=== PATIENT | male | born 1965 | race Caucasian/White ===

== ENCOUNTER → 2017-12-15 | Outpatient (CLI) | payer OTHER ==
--- NOTE | 2017-12-15 23:31 | MR ---
EXAMINATION TYPE: MR hip LT wo con DATE OF EXAM: 12/15/2017 COMPARISON: None HISTORY: Left hip pain Standard multiplanar, multisequence MRI departmental protocol Multiplanar, multisequence images of the left hip were acquired. FINDINGS: Proximal femurs have normal signal pattern without evidence of edema. The acetabula are sym metric. There is asymmetric increased right side joint fluid compared to the left. There is a 16 x 5 cm fluid collection in the anterior upper thigh on the left side on the medial aspect. This extends t o the left inguinal region. I see no mass within the pelvis. There is no free fluid in the pelvis. Th ere is no sign of avascular necrosis. IMPRESSION: Large cystic fluid collection in the anterior thigh extending to the left inguinal region. This could be an unusual inguinal hernia containing intraperitoneal fluid. This appears remote from the left hi p joint and I do not think this is a synovial cyst. there appears to be a channel extending to the inguinal ligament. No evidence of hip dysplasia or avascular necrosis.
--- NOTE | 2017-12-15 23:35 | MR ---
EXAMINATION TYPE: MR femur/thigh LT wo con DATE OF EXAM: 12/15/2017 COMPARISON: None HISTORY: Pain and redness and swelling Standard multiplanar, multisequence MRI departmental protocol Multiplanar, multisequence images of the left femur were acquired. FINDINGS: The exam extends from the subtrochanteric femurs to the knee joints. The femurs have normal signal pattern without evidence of a bony destructive process. There is elongated large cystic fluid collection in the anterior left upper thigh on the medial aspect. This measures 17 x 5 cm. The upper extent is seen on the MR scan of the hip joint. This extends to the inguinal ligament. I see no no e vidence of a mass within the thigh muscles. There is normal flow signal seen in the femoral veins and arteries. IMPRESSION: Large nonspecific cystic mass in the medial anterior upper thigh. I would consider possibilities of c hronic hematoma, seroma, less likely abscess.
== END | disposition home or self-care (01) ==
LOC: RADMRIMAIN 17:15
PROVIDERS: ATTEND Surgery
DX: C49.22 Malignant neoplasm of connective and soft tissue of left lower limb, including hip (principal)

== ENCOUNTER → 2018-02-04 | Outpatient (CLI) | payer OTHER ==
--- NOTE | 2018-02-05 16:59 | PE ---
EXAMINATION TYPE: PET CT fusion skull to thigh DATE OF EXAM: 02/04/2018 COMPARISON: MRI left thigh 12/15/2017 Prior PET/CT: None HISTORY: Sarcoma left thigh TECHNIQUE: Following the intravenous administration of 13.628 mCi of F-18 FDG, whole body images are performed from the skull base to the midthigh. Images are reviewed on the computer in the coronal, axial, and sagittal planes. Reconstructed rotating images are created on independent workstation and reviewed on the computer. A localization and attenuation correction CT is performed in conjunction with the PET scan. DLP: 455.66 mGycm SCAN: Initial Blood glucose: 94 mg/dL Average Mediastinum SUV: 1.2 Average Liver SUV: 1.70 FINDINGS: NECK: There is increased radiotracer accumulation within the tonsillar pillars. On the left this has an SUV value of 4.8 and on the right this has an SUV value of 3.29. PET image 32. Direct visualizati on is recommended. THORAX: No abnormal uptake ABDOMEN: No abnormal uptake PELVIS: No abnormal uptake. Upper thighs: The left anterior medial thigh mass has a similar density to musculature. Uptake is mil d diffuse. Greatest uptake appears to be approximately 2.32 in the upper portion. PET image 241. Sabino tional uptake is in the range of 1.95 - 2.06. Obvious metastatic lesions are not identified. OSSEOUS STRUCTURES: No abnormal uptake LOCALIZATION CT: Tonsillar pillars do not appear significantly abnormal some mild fullness. Suspiciou s adenopathy is not identified. Mediastinum appears unremarkable. The ascending thoracic aorta at the level of main pulmonary artery is 3.7 cm previously. The bifurcation is 2.6 cm. Mass within the ante rior medial thigh appears to be completely visualized and is estimated to measure 7.8 x 4.4 cm. COMPARISON: No significant change from the MRI is evident. IMPRESSION: 1. Intermediate signal through the mass at the anterior medial left thigh. Given the significant hype rmetabolic activity of this lesion, metastatic lesions may be difficult or occult on evaluation of th is PET/CT. 2. No suspicious uptake identified elsewhere to suggest metastatic disease. 3. There is some increased uptake within the bilateral tonsillar pillars. Direct visualization is war ranted.
== END | disposition home or self-care (01) ==
LOC: RADPETMAIN 15:29
PROVIDERS: ATTEND Radiology Radiation Oncology
DX: C49.22 Malignant neoplasm of connective and soft tissue of left lower limb, including hip (principal)
CPT/HCPCS: 78815; A9552

== ENCOUNTER → 2018-04-28 | Outpatient (CLI) | payer OTHER ==
--- NOTE | 2018-04-30 10:20 | MR ---
EXAMINATION TYPE: MR hip LT wo/w con DATE OF EXAM: 04/28/2018 COMPARISON: 12/15/2017 HISTORY: Sacroma CONTRAST: Standard multiplanar, multisequence MRI departmental protocol utilizing 9 mL intravenous Gadavist hardy olinium contrast. The plantar MultiSpin echo imaging of the left hip was performed with pre and post contrast enhanced images obtained. FINDINGS: Large predominantly cystic mass noted medial left thigh anteriorly persists although is much smaller in size on the current study. Prior measurement is 16 x 5 cm with current measurement of 6.0 x 4.0 x 3.1 cm. Mass currently demonstrates cystic and solid component. No new masses are identified. There a ppears to be an adjacent enlarged lymph node measuring 1.7 cm. Additional lymph nodes are noted withi n the bilateral inguinal regions all measuring less than 1 cm short axis. No intrapelvic adenopathy i s appreciated. No pelvic masses identified. Left hip joint space is well-preserved. No evidence for labral tear. No evidence for avascular necros is or fracture. IMPRESSION: 1. Partially cystic partially solid mass medial left thigh anteriorly persists although is much small er in size. 2. Adjacent adenopathy as discussed.
== END | disposition home or self-care (01) ==
LOC: RADMRIMAIN 14:39
PROVIDERS: ATTEND Orthopaedic Surgery
DX: R59.0 Localized enlarged lymph nodes (principal); C49.9 Malignant neoplasm of connective and soft tissue, unspecified
CPT/HCPCS: 73723; A9585

== ENCOUNTER → 2018-06-03 | Outpatient (CLI) | payer OTHER ==
--- NOTE | 2018-06-03 09:23 | MR ---
EXAMINATION TYPE: MR cspine/lspine wo con DATE OF EXAM ORDERED: 06/03/2018 9:03 AM HISTORY: M54.10 Radiculopathy, site unspecified. TECHNOLOGIST HISTORY AT TIME OF EXAM: Radiculopathy, site unspecified, back and neck pain COMPARISON: Previous study dated 12/18/2015 and 08/26/2015. TECHNIQUE: Multiplanar, multiecho imaging of the cervical spine was obtained without contrast on a 1 .5 ruiz magnet. FINDINGS: CERVICAL SPINE: Prevertebral soft tissues are normal. There is mild loss of vertebral body height at C6. This has progressed from previous. Alignment remai ns normal. Cord signal is normal. There is a normal craniocervical junction. At C2-C3, there is mild left-sided intervertebral foraminal narrowing. There is no significant compre ssive discopathy. The facets and uncovertebral joints are unremarkable. At C3-C4, there is bilateral intervertebral foraminal narrowing. There is no significant compressive discopathy. There is mild facet arthropathy bilaterally. The uncovertebral joints are unremarkable. At C4-C5, there is bilateral intervertebral foraminal narrowing. There is a broad-based disc displace ment. There is facet hypertrophy. The uncovertebral joints are unremarkable. At C5-C6, there is mild disc space loss. There is bilateral intervertebral foraminal narrowing. There is a broad-based disc displacement. This is contacting the cord on the left. This is not compressing the cord. There is facet arthropathy. The uncovertebral joints are unremarkable. At C6-C7, there is mild vertebral body height loss at C6. There is disc space narrowing at C6-7. Inte rvertebral foramina appear well maintained. There is a right paracentral disc protrusion without defi nite cord contact. The facet and uncovertebral joints are unremarkable. At C7-T1, no definite abnormality is seen. LUMBAR SPINE: Prevertebral soft tissues are normal. Vertebral body height and alignment are maintained. Cord signal is maintained. The conus ends normall y at the level of the L1-2 disc. At T12-L1, intervertebral foramina are well maintained. There is no significant compressive discopath y. The facets are unremarkable. At L1-2, the intervertebral foramina are well maintained. There is no significant compressive discopa thy. There is capsulitis within the facets. At L2-3, there is disc space loss and disc desiccation. The intervertebral foramina are well maintain ed. There is a bilobed disc displacement. There is hypertrophic change and capsulitis within the face ts. At L3-4, the intervertebral foramina appear well maintained. There is a left lateral disc protrusion impinging upon the left exiting L3 nerve root and mildly deforming the thecal sac. There is hypertrop hic change and capsulitis within the facets. At L4-5, intervertebral foramina are well maintained. There is no significant compressive discopathy. There is hypertrophic change in the facets. At L5-S1, there is severe disc space loss. The intervertebral foramina appear reasonably well-maintai josh. There is hypertrophic change and capsulitis within the facets. IMPRESSION: 1. PROGRESSIVE VERTEBRAL BODY HEIGHT LOSS AT C6. 2. MULTILEVEL INTERVERTEBRAL FORAMINAL NARROWING. 3. DIFFUSE FACET ARTHROPATHY IN THE CERVICAL SPINE. 4. LEFT PARACENTRAL DISC DISPLACEMENT, C5-6, CONTACTING THE CERVICAL CORD WITHOUT COMPRESSION. 5. SEVERE DEGENERATIVE DISC DISEASE, L5-S1, UNCHANGED FROM PREVIOUS. 6. LEFT PARACENTRAL DISC PROTRUSION, L3-4, IMPINGING UPON THE EXITING L3 NERVE ROOT ON THE LEFT. 7. DIFFUSE FACET ARTHROPATHY IN THE LUMBAR SPINE.
== END | disposition home or self-care (01) ==
LOC: RADMRIMAIN 08:07
PROVIDERS: ATTEND Orthopaedic Surgery
DX: M48.02 Spinal stenosis, cervical region (principal); M50.222 Other cervical disc displacement at C5-C6 level; M51.26 Other intervertebral disc displacement, lumbar region; M51.37 Other intervertebral disc degeneration, lumbosacral region; M46.92 Unspecified inflammatory spondylopathy, cervical region; M46.96 Unspecified inflammatory spondylopathy, lumbar region
CPT/HCPCS: 72141; 72148

== ENCOUNTER → 2018-06-05 | Outpatient (CLI) | payer OTHER ==
--- NOTE | 2018-06-05 16:36 | CT ---
EXAMINATION TYPE: CT ChestAbdPelvis w con DATE OF EXAM: 06/05/2018 COMPARISON: Nuclear medicine PET/CT 02/04/2018 HISTORY: Sarcoma groin lt lower extremity CT DLP: 1935 mGycm Automated exposure control for dose reduction was used. CONTRAST: CT scan of the chest, abdomen and pelvis is performed with Oral Contrast and with IV Contrast, patien t injected with 100 mL of Isovue 300. FINDINGS: LUNGS: The lungs are stable, subcentimeter nodularity in the right lung is again noted, apical parase ptal emphysematous changes are present. There is no pleural effusion or pneumothorax seen. The tra cheobronchial tree is patent. MEDIASTINUM: There are no greater than 1 cm hilar or mediastinal lymph nodes. No pericardial effusi on is seen. AORTA: No significant abnormality is seen. OTHER: At the surgical site in the left lower extremity, there is a residual area of low-attenuation measuring approximately 3.6 x 7.6 x 1.5 cm along the anterior aspect of the abductor musculature, nella e associated surgical clips are also present within the subcutaneous fat level without adenopathy. LIVER/GB: Liver shows low attenuation compatible with steatosis. Gallbladder is unremarkable. PANCREAS: No significant abnormality is seen. SPLEEN: No significant abnormality is seen. ADRENALS: No significant abnormality is seen. KIDNEYS: No significant abnormality is seen. REPRODUCTIVE ORGANS: No gross abnormality seen. BOWEL: No significant abnormality is seen. FREE AIR: No Free Air visible. ASCITES: None seen. RETROPERITONEAL ADENOPATHY: No retroperitoneal adenopathy is seen. LYMPH NODES: No greater than 1 cm abdominal or pelvic lymph nodes are appreciated. URINARY BLADDER: No significant abnormality is seen. PELVIC ADENOPATHY: None visualized. OSSEOUS STRUCTURES: No significant abnormality is seen. IMPRESSION: Residual low-attenuation site of patient's previous mass could be related to seroma rathe r than tumor. There is some associated local postoperative change suspected.
== END | disposition home or self-care (01) ==
LOC: RADCTMAIN 13:42
PROVIDERS: ATTEND Orthopaedic Surgery
DX: C49.9 Malignant neoplasm of connective and soft tissue, unspecified (principal)
CPT/HCPCS: 71260; 74177; Q9967

== ENCOUNTER → 2018-10-30 | Outpatient (CLI) | payer OTHER ==
--- NOTE | 2018-10-31 08:08 | CT ---
EXAMINATION TYPE: CT ChestAbdPelvis w con DATE OF EXAM: 10/30/2018 COMPARISON: 06/05/2018 HISTORY: Sarcoma. Follow-up exam. CT DLP: 1050.5 mGycm. Automated Exposure Control for Dose Reduction was Utilized. CONTRAST: CT scan of the thorax, abdomen and pelvis is performed with IV Contrast, patient injected with 100ml mL of Isovue 300. FINDINGS: LUNGS: There is unchanged size and number of the predominantly right-sided pulmonary nodules measurin g up to 6 mm in the right lower lobe on series 5 image 35. The remainder of the sub-4 mm pulmonary no dules are marked on the examination with only 1 left pleural-based questionable pulmonary nodule and probable atelectasis near branching vessels on series 5 image 52. There are emphysematous changes of the lung apices again appreciated. No focal consolidation, pleural effusion or pneumothorax. Main tra cheal bronchial tree is patent. MEDIASTINUM: There are no greater than 1 cm hilar or mediastinal lymph nodes. No pericardial effusi on is seen. A solitary punctate coronary artery calcification is seen. OTHER: The previously seen area of hypoattenuation within the anterior abductor musculature of the le ft lower extremity previously seen on series 3 image 135 possibly representing a hematoma or seroma h as resolved in the interim. The adjacent surgical clips and small fluid collection at that time infer ior to the intramuscular lesion have also resolved in the interim. This previously was seen on series 3 image 142 with no residual fluid collection seen at this time. There is some linear fibrosis with surrounding surgical clips currently on series 3 image 141. Other fibrosis and surgical clips are see n more cranial on image 125 with soft tissue density similar to the prior measuring up to 7 mm in gre atest thickness likely fibrosis and granulation tissue however surveillance is recommended. This exte nds towards the left femoral vein may be partially related to surgical intervention and/or left femor al catheter placement scarring. LIVER/GB: Hepatic parenchyma is diffusely hypoattenuated in comparison to that of the spleen, most co mmonly seen in hepatic steatosis. This finding limits evaluation for hepatic masses. Subcapsular wedg e-shaped areas of hyperattenuation that are relative likely relate to focal fatty sparing. This is al so seen surrounding the gallbladder fossa. No gross evidence of hepatic mass is seen. No intrahepatic biliary ductal dilatation. No cholelithiasis. PANCREAS: No significant abnormality is seen. No pancreatic ductal dilatation. SPLEEN: No significant abnormality is seen. No enlargement. ADRENALS: No significant abnormality is seen. No new nodule or thickening. KIDNEYS: No significant abnormality is seen. Kidneys enhance and excrete symmetrically without hydron ephrosis. BOWEL: Very few colonic diverticula are seen without pericolonic fat stranding. Moderate fecal stasis . GENITAL ORGANS: No gross abnormality seen. LYMPH NODES: No greater than 1cm abdominal or pelvic lymph nodes are appreciated. OSSEOUS STRUCTURES: Mild multilevel degenerative changes of the spine are noted most severe at L5-S1 similar to the prior. No new suspicious osseous lesion. OTHER: Mild atherosclerosis is seen of the abdominal aorta and its branches. IMPRESSION: The previously suspected seroma within the left abductor musculature is confirmed to be a seroma as this has entirely resolved in the interim. More superficial tiny fluid collection has also resolved with linear fibrosis at the surgical site in the medial left thigh and left superficial ing uinal region. Continued surveillance is recommended. No new evidence of metastatic disease. Stable pr edominantly right multiple pulmonary nodules measuring up to 6 mm.
== END | disposition home or self-care (01) ==
LOC: RADCTMAIN 16:17
PROVIDERS: ATTEND Orthopaedic Surgery
DX: R91.8 Other nonspecific abnormal finding of lung field (principal); C49.9 Malignant neoplasm of connective and soft tissue, unspecified
CPT/HCPCS: 71260; 74177; Q9967

== ENCOUNTER → 2019-03-23 | Outpatient (CLI) | payer OTHER ==
--- NOTE | 2019-03-23 16:58 | CT ---
EXAMINATION TYPE: CT ChestAbdPelvis w con DATE OF EXAM: 03/23/2019 COMPARISON: 10/30/2018 HISTORY: f/u sarcoma CT DLP: 1277.5 mGycm CONTRAST: CT scan of the chest, abdomen and pelvis is performed without Oral Contrast and with IV Contrast, pat ient injected with 100 mL of Isovue 300. CT Chest: LUNGS: The lungs are clear and free of infiltrate or atelectasis. Scattered pulmonary nodules redemon strated. Largest nodule right lower lobe measures 6.1 mm versus 6.1 mm previously. Additional scatter ed pulmonary nodules are stable and all measure less than 4 mm. No new nodules or masses identified. No pleural effusion or CT evidence of interstitial lung disease. MEDIASTINUM: Thoracic aorta is of normal caliber. The heart is not enlarged. No evidence for media stinal mass or adenopathy. HILAR STRUCTURES: No evidence for mass. No hilar adenopathy is appreciated. OTHER: No significant abnormality. CONTRAST CT ABDOMEN AND PELVIS FINDINGS: LIVER/GB: Fatty liver with mild hepatomegaly. No calcified gallstones. No space occupying hepatic lesion. Biliary tree is of normal caliber. PANCREAS: No inflammation. No distinct mass. SPLEEN: No splenic enlargement. No lesion seen. ADRENALS: No nodule. No thickening. KIDNEYS/BLADDER: No hydronephrosis. No nephrolithiasis. No disctinct renal mass. BOWEL: Normal appendix. Normal bowel caliber. No inflammation. GENITAL ORGANS: No gross abnormality. LYMPH NODES: No greater than 1cm abdominal or pelvic lymph nodes are appreciated. AORTA: No significant abnormality. OSSEOUS STRUCTURES: No significant abnormality is seen. OTHER: Postoperative changes redemonstrated medial left thigh and left superficial region. No evidenc e for recurrent mass or fluid collection at this time. No evidence for adenopathy. IMPRESSION: 1. Postoperative changes redemonstrated medial left thigh and left superficial region. No evidence fo r recurrent mass or fluid collection at this time. No evidence for adenopathy. 2. Stable nonspecific pulmonary nodularity. 3. Mild hepatomegaly and fatty liver.
== END | disposition home or self-care (01) ==
LOC: RADCTMAIN 16:24
PROVIDERS: ATTEND Orthopaedic Surgery
DX: K76.0 Fatty (change of) liver, not elsewhere classified (principal); R16.0 Hepatomegaly, not elsewhere classified; R91.8 Other nonspecific abnormal finding of lung field; C49.22 Malignant neoplasm of connective and soft tissue of left lower limb, including hip; Z98.890 Other specified postprocedural states
CPT/HCPCS: 71260; 74177; Q9967

== ENCOUNTER → 2019-06-26 | Outpatient (CLI) | payer OTHER ==
--- NOTE | 2019-06-27 05:01 | CT ---
EXAMINATION TYPE: CT ChestAbdPelvis w con DATE OF EXAM: 06/26/2019 COMPARISON: 03/23/2019 and 10/30/2018 HISTORY: 54-year-old male neoplastic (malignant) related fatigue. Follow up for sarcoma left groin ar ea. TECHNIQUE: Contiguous axial scanning of the chest, abdomen, and pelvis performed with IV Contrast, pa tient injected with 100 mL of Isovue 300. Delayed images through the kidneys were obtained. Coronal/s agittal reconstructions performed. CT DLP: 1362 mGycm Automated exposure control for dose reduction was used. FINDINGS: CHEST: Heart normal size without pericardial effusion. Aorta normal caliber with a conventional arch vessel branching anatomy. No thoracic lymphadenopathy by CT size criteria. No consolidation or pleural effusion. Mild emphysematous changes noted. Scattered 4 mm and smaller right-sided pulmonary nodules in the mid and lower lungs are unchanged. Th e dominant 7 mm peripheral right lower lobe pulmonary nodule, axial image 34 is unchanged. A couple 4 mm pulmonary nodules on the left are unchanged. No new pulmonary nodules are seen. No consolidation or pleural effusion. ABDOMEN: Liver enlarged at 19.7 cm. Suspect underlying fatty infiltration with fatty sparing along the gallbla dder fossa. Portal venous system is patent. No biliary ductal dilatation. Gallbladder, adrenal glands, kidneys, spleen, and pancreas appear within normal limits. Scattered nonenlarged mesenteric lymph nodes are unchanged. No retroperitoneal lymphadenopathy. Some prominent fluid-filled small bowel loops in the lower abdomen nonspecific, probably transient. N o dilated small bowel, free fluid, or free air. Scattered mild to moderate stool particularly on the right side of the colon. No pericolonic inflamma tory change. PELVIS: Bladder partially distended. Prostate gland measures 3.5 cm wide. No abnormal fluid collection the pe lvis or pelvic lymphadenopathy seen. Some surgical material and scarring is present in the lower left inguinal region. Some minimal soft t issue nodularity here measures 1.3 x 0.8 cm versus 1.6 x 0.9 cm on 03/23/2019, not significantly simmons ged. BONES: Severe degenerative disc disease L5-S1 with facet arthropathy. No osseous destructive process. IMPRESSION: 1. POSTSURGICAL CHANGES AND SCARRING IN THE LOWER LEFT INGUINAL REGION. SOME SLIGHT SOFT TISSUE NODUL ARITY HERE MEASURES 1.3 X 0.8 CM (VERSUS 1.6 X 0.9 CM ON 03/23/2019 AND 1.5 X 0.7 CM ON 10/30/2018), NO T SIGNIFICANTLY CHANGED AND LIKELY REPRESENTING SCARRING. 2. SCATTERED PULMONARY NODULES INCLUDING THE DOMINANT 7 MM RIGHT LOWER LOBE PULMONARY NODULE ARE STAB LE BACK TO AT LEAST 10/30/2018. 3. NO NEW LYMPHADENOPATHY OR MASS IS SEEN. 4. HEPATOMEGALY (19.7 CM) WITH HEPATIC STEATOSIS REDEMONSTRATED.
== END | disposition home or self-care (01) ==
LOC: RADCTMAIN 17:33
PROVIDERS: ATTEND Orthopaedic Surgery
DX: R91.1 Solitary pulmonary nodule (principal); K76.0 Fatty (change of) liver, not elsewhere classified; R35.0 Frequency of micturition
CPT/HCPCS: 71260; 74177; Q9967

== ENCOUNTER → 2019-11-16 | Outpatient (CLI) | payer OTHER ==
--- NOTE | 2019-11-16 14:29 | PE ---
Nuclear medicine PET/CT HISTORY: Sarcoma left groin, subsequent Patient received 13 mCi F-18 FDG intravenously in delayed scanning was performed from skull base to t he mid thighs. Localization and attenuation correction CT scan was performed. Correlation prior CT chest abdomen pelvis 06/26/2019, prior nuclear medicine PET/CT 02/04/2018 neck and chest: There is no cervical or supraclavicular adenopathy. No suspicious hypermetabolic upta ke. No mediastinal, axillary, or hilar adenopathy. No pleural or pericardial effusion. There is a rig ht lower lobe pulmonary nodule subpleural location axial image 116 measuring approximately 9 mm simil ar to prior exam. Apical emphysematous changes are present. ABDOMEN: There is no evident liver mass or retroperitoneal adenopathy. No adrenal mass. There is no p elvic adenopathy. Postop changes are noted at the left groin. No suspicious hypermetabolic uptake. Osseous structures are unremarkable. Degenerative disc changes and facet arthropathy is noted at the lower lumbar spine. IMPRESSION: No evident recurrence.
== END | disposition home or self-care (01) ==
LOC: RADPETMAIN 08:02
PROVIDERS: ATTEND Radiology Radiation Oncology
DX: C49.22 Malignant neoplasm of connective and soft tissue of left lower limb, including hip (principal)
CPT/HCPCS: 78815; A9552